=== PATIENT | female | born 1995 | race Caucasian/White ===

== ENCOUNTER → 2018-12-21 | Outpatient (CLI) | payer OTHER ==
--- NOTE | 2018-12-21 07:34 | US ---
EXAMINATION TYPE: US abdomen complete DATE OF EXAM: 12/21/2018 COMPARISON: NONE CLINICAL HISTORY: R10.84 Generalized Abdominal Pain R11.0 nausea. NPO, patient states her abdomen fee ls hard in the morning and feels sensitive to food EXAM MEASUREMENTS: Liver Length: 14.5 cm Gallbladder Wall: 0.1 cm CBD: 0.2 cm Spleen: 11.8 cm Right Kidney: 10.9 x 5.1 x 5.4 cm Left Kidney: 12.3 x 5.2 x 5.2 cm Pancreas: wnl Liver: wnl Gallbladder: wnl Evidence for sonographic Gutierrez's sign: neg CBD: wnl Spleen: wnl Right Kidney: wnl Left Kidney: wnl Upper IVC: wnl Abd Aorta: Mid portion obscured by overlying bowel gas The liver is homogenous. The intrahepatic portion of the IVC and proximal abdominal aorta are within normal limits. There is no evidence of cholelithiasis. Common bile duct is unremarkable. The visu alized portions of the pancreas are homogenous. The spleen is unremarkable. Kidneys are symmetric a nd free of hydronephrosis. No renal lesions are seen. IMPRESSION: Unremarkable abdominal ultrasound other than partial obscuration of the abdominal aorta b y overlying bowel gas. No sonographic evidence of cholelithiasis nor acute cholecystitis.
== END ==
LOC: RADUSWWP 06:49
PROVIDERS: ATTEND Family Medicine
DX: I74.09 Other arterial embolism and thrombosis of abdominal aorta (principal)
CPT/HCPCS: 76700

== ENCOUNTER 2019-01-21 09:32 | Day surgery (SDC) | payer OTHER ==
[2019-01-18 10:08] VITALS: BMI 32.4
[~2019-01-21 09:32] MED LIST: LACTATED RINGERS 1,000 ML IV SCH; LIDOCAINE 1% 20 ML VIAL (10MG/ML) FOR IV START INTRADERMA PRN
[2019-01-21 10:12] VITALS: RESP 20; TEMP 98.2
[2019-01-21] MEDS ORDERED: LIDOCAINE 1% INJ 10MG/ML (20 ML MDV) ONE (10:21)
[2019-01-21] MEDS ORDERED: PROPOFOL 10 MG/ML 20 ML VIAL IV ONE (10:21)
--- NOTE | 2019-01-21 10:24 | P.GSHP ---
History of Present Illness H&P Date: 01/21/19 Chief Complaint: GERD, epigastric pain Is a 21-year-old female who presents for EGD... Also had some epigastric and right quadrant pain. Past Medical History Past Medical History: GERD/Reflux Additional Past Medical History / Comment(s): abdomen feels bloated and hard,prednisone December 2018 History of Any Multi-Drug Resistant Organisms: None Reported Past Surgical History: No Surgical Hx Reported Past Anesthesia/Blood Transfusion Reactions: No Reported Reaction Additional Past Anesthesia/Blood Transfusion Reaction / Comment(s): no hx general anesthesia Smoking Status: Never smoker Past Alcohol Use History: None Reported Past Drug Use History: None Reported - Past Family History Mother Family Medical History: Cancer Medications and Allergies Home Medications Medication Instructions Recorded Confirmed Type Omeprazole 40 mg PO DAILY 01/18/19 01/21/19 History Allergies Allergy/AdvReac Type Severity Reaction Status Date / Time No Known Allergies Allergy Verified 01/18/19 10:02 Surgical - Exam Vital Signs Temp Resp BP Pulse Ox 98.2 F 20 155/66 99 01/21/19 10:01 01/21/19 10:01 01/21/19 10:01 01/21/19 10:01 - General well developed, well nourished, no distress - Eyes PERRL - ENT normal pinna - Neck no masses - Respiratory normal expansion - Cardiovascular Rhythm: regular - Abdomen Abdomen: soft, non tender Assessment and Plan Assessment: GERD, right groin pain. We'll perform EGD.
--- NOTE | 2019-01-21 10:35 | P.OP ---
Date of Procedure: 01/21/19 Preoperative Diagnosis: GERD Postoperative Diagnosis: Antral gastritis Esophagitis Procedure(s) Performed: EGD Anesthesia: MAC Surgeon: Ben Gutierrez Pathology: other (Antrum, esophagus) Condition: stable Disposition: PACU Description of Procedure: Chau on the endoscopy table lateral position. She received IV sedation. The gastroscope was placed oropharynx passed in the esophagus and stomach. Scope was then placed through the pylorus. The first and second portion of duodenum appeared normal. Scope was then brought back the antrum this was mildly inflamed. A biopsies performed. Scope was then retroflexed and the remainder of the stomach appeared normal. There was evidence of a small sliding hiatal hernia. The GE junction was at 39 cm. The distal esophagus was mildly inflamed a biopsies performed. The proximal esophagus appeared normal. Scope withdrawn for patient.
[2019-01-21 11:07] VITALS: BP 117/78; PULSE 87
== END 2019-01-21 11:25 | disposition home or self-care (01) ==
LOC: ORWHC2ENDO 09:32
PROVIDERS: ATTEND Surgery
DX: K21.0 Gastro-esophageal reflux disease with esophagitis (principal); K29.50 Unspecified chronic gastritis without bleeding; Z79.899 Other long term (current) drug therapy; Z80.9 Family history of malignant neoplasm, unspecified
CPT/HCPCS: 81025; 88305; 43239; J2001; J2704

== ENCOUNTER → 2019-01-25 | Outpatient (CLI) | payer OTHER ==
--- NOTE | 2019-01-25 12:02 | NM ---
EXAMINATION TYPE: NM hepatobiliary w CCK DATE OF EXAM: 01/25/2019 COMPARISON: Abdominal ultrasound dated 12/21/2018 HISTORY: Biliary dyskinesia. Abdominal pain. TECHNIQUE: After the intravenous administration of 4.2 mCi Tc 99m Mebrofenin hepatobiliary scintigrap hy is performed. Immediate images post injection. FINDINGS: There is satisfactory initial accumulation of tracer by the liver. The gallbladder is visualized wit hin 8 minutes. The small bowel activity is noted within 20 minutes. At one hour CCK was administere d, patient was injected with 1.6 mcg of Kinevac, and gallbladder ejection fraction is calculated at 6 7 %, in the normal range. Therefore there is no scintigraphic evidence of cystic or common bile duct obstruction to suggest acute cholecystitis or gallbladder dyskinesia. IMPRESSION: No scintigraphic evidence of acute cholecystitis, chronic cholecystitis, nor biliary dysk inesia.
== END | disposition home or self-care (01) ==
LOC: RADNMMAIN 06:53
PROVIDERS: ATTEND Surgery
DX: K82.8 Other specified diseases of gallbladder (principal)
CPT/HCPCS: 78227; A9537; J2805

== ENCOUNTER → 2019-02-01 | Outpatient (CLI) | payer OTHER ==
--- NOTE | 2019-02-01 15:12 | CT ---
EXAMINATION TYPE: CT abdomen pelvis w con DATE OF EXAM: 02/01/2019 COMPARISON: HISTORY: Pelvic mass, abdominal distention CT DLP: 1170.4 mGycm CONTRAST: CT scan of the abdomen and pelvis is performed with Oral Contrast and with IV Contrast, patient injec vijaya with 100 mL of Isovue 300. FINDINGS: LUNG BASES-: No visible nodule. No infiltrate. LIVER/GB: No calcified gallstones. No space occupying hepatic lesion. Biliary tree is of normal ca liber. PANCREAS: No inflammation. No distinct mass. SPLEEN: No splenic enlargement. No lesion seen. ADRENALS: No nodule. No thickening. KIDNEYS/BLADDER: No hydronephrosis. No nephrolithiasis. No distinct renal mass. Urinary bladder g rossly unremarkable. BOWEL: Normal appendix. Normal bowel caliber. No inflammation. GENITAL ORGANS: There is a large cystic pelvic mass within the midline arising from the right ovary with mild internal septations measuring 18 cm craniocaudal dimension by 13.9 cm transverse dimension and 11 cm AP dimension. [employer] consult is advised. Neoplasm is not excluded. Left ovary demonstrates a small cyst measuring 2.6 cm likely functional in nature. The uterus is free of distinct mass lesion . No evidence for free fluid or regional adenopathy. LYMPH NODES: No greater than 1cm abdominal or pelvic lymph nodes are appreciated. AORTA: No significant abnormality. OSSEOUS STRUCTURES: No significant abnormality is seen. OTHER: No significant additional abnormality is seen. IMPRESSION: 1. There is a large cystic pelvic mass within the midline arising from the right ovary with mild inte rnal septations measuring 18 cm craniocaudal dimension by 13.9 cm transverse dimension and 11 cm AP d imension. [employer] SUPER[employer] consult is advised. Neoplasm is not excluded.
== END | disposition home or self-care (01) ==
LOC: RADCTMAIN 12:53
PROVIDERS: ATTEND Surgery
DX: N83.201 Unspecified ovarian cyst, right side (principal)
CPT/HCPCS: 74177; Q9967 ×2